=== PATIENT | female | born 1980 | race Caucasian/White ===

== ENCOUNTER 2019-07-06 06:36 | Day surgery (SDC) | payer OTHER, SELFPAY ==
--- NOTE | 2019-06-20 03:39 | HP_ITS ---
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 Farhat Sosa MD) Cholelithiasis (Acute) Abdominal pain (Acute) Surgical History (Updated 06/20/19 @ 14:24 by Tiffany Castro) No history of previous surgery (Acute) Family History (Updated 06/20/19 @ 14:25 by Tiffany Castro) Son Diabetes Seizures Father Heart disease Hypertension Grandmother CVA (cerebral vascular accident) Mother Thyroid disorder Social History (Updated 06/20/19 @ 15:[address] Farhat Sosa MD) Smoking Status: Current every day smoker alcohol intake: never substance use type: does not use HPI HPI HPI: TIM BROWN is a 38 F who presents to the office today for HPI HPI Surgical H&P: Yes HPI: TIM BROWN, is a 38 F who presents to the office today for right mid abdominal pain. The patient's primary care physician is Dr. Mitzi Canada. Written copy of my surgical recommendations will be returned to her. 1 year ago she developed some intermittent right mid abdominal pain to the right of the umbilicus. She complains of the discomfort particularly after eating something close to the end of her eating. Is associated with nausea. She has gas and rumbling. She denies fever. She frequently has sweats. A month ago she developed mononucleosis. She was severely dehydrated. She was in the hospital overnight. CT scan was obtained at [facility] gallbladder was present and in the fundus was a soft tissue density measuring 0.1 x 1 x 1.3 cm. [place] possibly to be adenomyosis. Small bowel enteritis was identified. Subsequently on June 02, 2019 she had a right upper quadrant ultrasound. This demonstrated a mildly hyperechoic focus measuring 9 x 7 mm felt to be likely a stone of the gallbladder. She is referred for surgical consultation. She has not had any previous surgery on her abdomen. ROS General General: No weight change, appetite, fatigue, colon cancer, breast cancer or weakness HEENT HEENT: Yes swollen glands; no difficulty swallowing, eye injury, eye surgery or hoarseness Endo Endocrine: No thyroid disease, diabetes mellitus, thyroid cancer, Hair loss, heat intolerance or cold intolerance Skin Skin: No rash or changing moles Breast Breast: No left breast lump, right breast lump, nipple discharge, breast pain, abnormal mammogram, abnormal US or breast enlargement Musc Musculoskeletal: Yes back problems Cardio Cardiovascular: Yes high blood pressure; no murmur, pacemaker, heart disease, atrial fibrillation, heart attack, heart stent, palpitations, shortness of breat with exertion or chest pain Psych Psychiatric: Yes anxiety; no depression or hearing voices Resp Respiratory: No shortness of breath, No sleep apnea, No cough, No COPD, No asthma, No emphysema, No wheezing Gastro Gastrointestinal: Yes abdominal pain, Yes nausea or vomiting, No diarrhea, No constipation, No blood in stool, No acid reflux, No hemorrhoids, No ulcers, Yes gallbladder problem, No black,tarry stools Bg Hematologic: No blood thinners, No blood disorders, No bleeding, No anemia, No blood clots Neuro Neurologic: No system reviewed and no additional complaints, except as docu, No as per HPI, No abnormal walking, No abnormal hearing, No abnormal movements, No abnormal speech, No behavioral changes, No burning sensations, No confusion, No seizure-like activity, No unsteadiness, No dizziness, No localized weakness, No frequent falls, No headache(s), No lack of coordination, No loss of vision, No memory loss, No numbness, No other visual disturbances, No radiating pain, No restless legs, No sensory deficit, No fainting, No tingling, No tremor(s), No weakness, No other Exam Const General: cooperative, healthy appearing, comfortable Nutritional Appearance: underweight Orientation: alert, awake HENMT Head: normal to inspection Chest Chest palpation & inspection: normal inspection of the chest Breast Palpation: No nipple discharge Resp Effort & Inspection: normal respiratory effort Auscultation: clear to auscultation bilaterally Cardio Rate: regular rate Rhythm: regular rhythm Heart Sounds: no murmurs GI Other: Soft, normal bowel sounds, slight tenderness palpation right lower quadrant but no mass rebound or guarding Neuro General: alert, awake, oriented x3 Extrem General: no calf tenderness bilaterally Psych Affect: normal affect Assessment & Plan Problems 1. Right upper quadrant abdominal pain R10.11 2. Calculus of gallbladder with chronic cholecystitis without obstruction K80.10 Plan Chronic cholecystitis cholelithiasis. Abdominal pain. I suspect at least a portion of her discomfort is secondary to the stone. She has had an opportunity to ask any questions answered. I proposed for her a laparoscopic cholecystectomy with selective cholangiography. In detail we have discussed the technique, benefit, risk, alternatives. She has had an opportunity to ask and have questions answered. We will schedule and proceed at her discretion. I appreciate the opportunity of assisting with her surgical care Cc: Dr. Mitzi Sosa M.D., F.A.C.S. Coding Level of Care Code 90005 Diagnoses Right upper quadrant abdominal pain R10.11 ??Abdominal location: right upper quadrant Calculus of gallbladder with chronic cholecystitis without obstruction K80.10 ??Cholelithiasis location: gallbladder ??Cholecystitis presence: with cholecystitis ??Cholecystitis acuity: chronic ??Biliary obstruction: without biliary obstruction 06/20/19 1539 <Electronically signed by Farhat palacios MD> Date _ Farhat Sosa MD I have re-examined the patient. There are no clinical changes since date of exam.
[2019-06-20 14:20] VITALS: BMI 19.7
[2019-07-06] VITALS (8 sets, daily range): BP systolic 118–143; BP diastolic 77–97; PULSE 62–90; RESP 15–20; TEMP 36.8–37.2; O2SAT 93–100; BMI 21.2
--- NOTE | 2019-07-06 06:37 | EKG12_ITS ---
Test Reason : PRE OP Blood Pressure : / mmHG Vent. Rate : 059 BPM Atrial Rate : 059 BPM P-R Int : 134 ms QRS Dur : 076 ms QT Int : 386 ms P-R-T Axes : 068 066 050 degrees QTc Int : 382 ms Sinus bradycardia Otherwise normal ECG No previous ECGs available Confirmed by JOVANY CRUMP ([id number]), continuity editor STACIE BROWN ([id number]) on 07/07/2019 9:24:55 AM Referred By: Farhat Sosa Confirmed By:JOVANY CRUMP
[2019-07-06 07:00] LABS: Internal QC Validated? YES +Cl - CLEAR BKGD; Pregnancy, Urine Negative Negative
[2019-07-06 07:06] LABS: Hematocrit 42.1 % (37-47); Hemoglobin 13.4 g/dL (12.0-15.0); Mean Corp Hgb Conc 31.8 g/dL (32-36); Mean Corpuscular Volume 94.4 fL (81-99); Mean Platelet Vol. 9.8 fl (6.2-12.0); Platelet Count 303 K/mm3 (150-450); RBC Distribution Width CV 12.4 % (11.6-14.6); RBC Distribution Width SD 43.2 fl (35.1-43.9); Red Blood Count 4.46 M/mm3 (4.2-5.4)
[2019-07-06] MEDS: Lactated Ringers 1,000 ML 100 ML IV ×2 (07:16→10:31)
[2019-07-06 07:21] LABS: ALB/GLOB Ratio 1.1 RATIO (0.9-2.4); AST(SGOT) 12 U/L (15-37); Alanine Aminotransfer ALT/SGPT 21 U/L (13-56); Albumin, Serum 3.8 g/dL (3.2-5.0); Alkaline Phosphatase 62 U/L (45-117); Anion Gap 5 (5-15); BUN 9 mg/dL (7-18); BUN/Creat Ratio 11.6 RATIO (10-20); Calcium,Total 8.8 mg/dL (8.5-10.1); Chloride 106 mmol/L (98-107); Creatinine, Serum 0.78 mg/dL (0.55-1.02); EST Glomerular Filtration Rate 88 mL/min (>60); Est Glom Filt Rate - Afr Amer 106 mL/min (>60); Estimated Creatinine Clearance 84.45 ml/min; Globulin 3.4 g/dL (2.2-4.2); Glucose 85 mg/dL (74-106); Potassium 3.4 mmol/L (3.5-5.1); Protein, Total 7.2 g/dL (6.4-8.2); Sodium Level 140 mmol/L (136-145)
--- NOTE | 2019-07-06 07:34 | PCM.DC.GS ---
Discharge Diet: Light diet - advance as tolerated - if you have questions about your diet instructions, please talk to you doctor. Discharge Activity: May Not Drive - for 1 week or while taking narcotic pain medicine. May shower in (days): 1 Lifting Restrictions: 10 pounds Call your doctor if your incision/area has: Continuous Slow Oozing, Sudden Increased Bleeding, Increased Pain/ Swelling, Increased Redness, Foul Smelling Discharge Call your doctor if you observe: Fever of 101 or Higher Suture Line Care: Avoid Pulling/Pushing, Avoid Pinching/Bending Additional Dressing/Incision Instructions:: Change or remove dressing in 4 days. Leave steri-strips in place for 1 week. Allergies/Adverse Reactions: Allergies sulfamethoxazole [From Bactrim] Allergy (Severe, Verified 07/06/19 06:53) Swelling trimethoprim [From Bactrim] Allergy (Severe, Verified 07/06/19 06:53) Swelling Medications to take at Discharge lisinopril 20 mg tablet 20 mg PO DAILY 06/20/19 sertraline 100 mg tablet 100 mg PO DAILY 06/20/19 Primary Care Physician: Mitzi Canada, COMMERCIAL UNDERWRITER-C [Primary Care Provider] - Test Results: Test results from this visit will be discussed in further detail at your follow-up appointment, if applicable. Please Follow Up With: Farhat Sosa MD - [phone] When: Call the office with a progress report in 10 days please
[2019-07-06] MEDS: Cefazolin 2 GM in 0.9% Normal Saline 100 ML IV (08:26)
--- NOTE | 2019-07-06 08:30 | GALL_PTH ---
PATIENT: TIM RED LOC: [facility] U#:[id number] AGE/SX: 38/F ROOM: RE07/06/[address]: Dr. Farhat oSsa MD : [id number] BED: DIS: 07/06/2019 SPEC #: [id number] RECD: 07/06/19 10:05 STATUS: LISA MARIELLE #: [id number] RICCO: 07/06/19 08:[address]: Farhat Sosa DEPT: SURGICAL PATHOLOGY RECD BY: Tenzin Lacey ENTERED: 07/06/19 10:22 SP TYPE: DEMOND CACERES DR: Mitzi Canada, [employer] FITNESS INSTRUCTOR-C Tissues: Gallbladder, NOS Procedures: Surgery Specimen Level III HEADER OPERATION: Laparoscopic cholecystectomy with IOC PRE-OP DIAGNOSIS: Right upper quadrant abdominal pain; calculus of gallbladder with chronic cholecystitis TISSUE SUBMITTED: Gallbladder MICROSCOPIC DIAGNOSIS Gallbladder, cholecystectomy: Chronic cholecystitis and cholesterolosis. Focal changes consistent with Rokitansky-Aschoff sinuses. See comment. CELESTE:hailey 07/07/19 COMMENT The nodule at the fundus show changes consistent with Rokitansky-Aschoff sinuses. MICROSCOPIC DESCRIPTION Slides are reviewed. GROSS DESCRIPTION Received is one container labeled with the patient's name and designated gallbladder. The specimen consists of a gallbladder measuring 7 cm in length and up to 2.5 cm in diameter. The external surface is pink-del toro, smooth and glistening for the most part. Focally it is granular, hemorrhagic and contains cautery artifact. The gallbladder contains green-yellow mucoid bile. No stones are identified in the container or in the gallbladder. Sections of the gallbladder wall reveal a del toro nodule at the fundus measuring 0.7 cm in greatest dimension. The gallbladder wall measures up to 0.2 cm in thickness. The mucosa also shows several yellowish streaks consistent with cholesterolosis. Rehab Tech sections from the gallbladder and the cystic duct are submitted in two cassettes as follows: 1 - mucosa, 2 - nodule at the fundus submitted in entirety. / CELESTE:hailey 07/06/19 TC:3 CPT: 81684
--- NOTE | 2019-07-06 08:30 | RAD_ITS ---
STUDY: INTRAOPERATIVE CHOLANGIOGRAM. REASON FOR EXAM: Female, 38 years old. pain. 11.7 sec., 76 images FLUOROSCOPY TIME (if supplied): ( 11.7 seconds ) minutes/seconds TECHNIQUE: An intraoperative cholangiogram was performed by the surgeon. Imaging was submitted. COMPARISON: None. FINDINGS: The visualized intrahepatic biliary ducts are unremarkable. The common bile duct is not dilated. No intraluminal filling defects are seen. There is free flow of contrast into the duodenum. RAD/Cholangiogram/ O R,Initial IMPRESSION: Unremarkable intraoperative cholangiogram. Electronically Signed: Misael Cantu, at 9:52 EDT , Service support ,
[2019-07-06] MEDS: Bupivacaine Mpf 0.5% 30 ML VIAL (09:15)
--- NOTE | 2019-07-06 09:27 | PCM.OPRPT ---
Problem List (1) Cholelithiasis Status: Acute Qualifiers: Cholelithiasis location: gallbladder Cholecystitis acuity: chronic Biliary obstruction: without biliary obstruction (2) Abdominal pain Status: Acute Qualifiers: Abdominal location: epigastric Qualified Code(s): R10.13 - Epigastric pain Report of Operation Date of Procedure: 07/06/19 Pre-Operative Diagnosis: Chronic cholecystitis cholelithiasis right upper quadrant abdominal pain Post-Operative Diagnosis: Same Surgery/Procedure Performed:: Laparoscopic cholecystectomy with cholangiograms Description of Surgical Findings:: Timeout and informed consent was obtained. 38-year-old female was taken to the operating placed by the table underwent general endotracheal intubation anesthesia. The abdomen sterilely prepped draped. 0.5% Marcaine was used as a local anesthetic. Throughout the procedure total of 30 cc was used. Skin sites were pre-anesthetized. Ancef 2 g were given intravenously preoperatively. A vertical infraumbilical midline incision was created sharp dissection carried down through the subtenons tissue direct access to the peritoneum obtained varies needle inserted the abdomen was insufflated with CO2 to a pressure of 10 Pressure to me trocar inserted 10 without scope inserted no concerning trocar injuries under physician 5 m ports were placed in the epigastric right upper quadrant and right lateral upper quadrant. Superficial inspection of the abdomen did not reveal any abnormality. The infundibular area was completely dissected free until clearly the cystic artery and cystic duct were identified with a critical view. The cystic artery was secured proximally and distally with hemo-lock clips prior to transecting it. Hemoclip was placed on the cystic duct incision made in the cystic duct and through a 14-gauge Angiocath cholangiogram catheter was inserted. Fluoroscopically controlled cholangiograms were obtained demonstrating normal ductal anatomy. Plan Estrada catheter was removed Humalog clip was placed on the cystic duct stump prior to transecting it. Further gallbladder peritoneum was secured with hemo-lock clips were pertinent. The gallbladder is dissected free from the liver bed. Very minimal bile spillage occurred at the dome of the gallbladder but that was rapidly controlled with only a couple drops. No stones. The gallbladder was immediately placed in a retrieval bag. It is asked at the umbilicus. The right upper colon was irrigated and aspirated free of excess fluid. An additional Hemoclip was placed at the gallbladder fundic area to assure hemostasis. The abdomen was aspirated irrigated free of excess fluid. Gallbladder is exited the umbilicus and remaining trochars were removed under visualization the abdomen was allowed to deflate of the CO2. The fascia at the umbilicus approximately 0 Vicryl [id number] suture. Skin edges approximated up to 4-0 Monocryl subdermal stitches. Steri-Strips Telfa and OpSite dressings applied. Sponge and instrument and needle counts were reported to the surgeon be correct. Blood loss minimal. Specimens gallbladder. Drains none. Blood loss minimal. Farhat Sosa M.D., F.A.C.S. Type of Anesthesia:: General Anesthesiologist: Lelo Cortez
[2019-07-06] MEDS: HYDROcodone Bitartrate/Apap 5/325 Tablet PO (12:05)
== END 2019-07-06 12:25 | disposition home or self-care (01) ==
LOC: SDC 06:37 → AC 06:39
PROVIDERS: PCP Nurse Practitioner Family; Referring Provider Surgery; Visit Provider Surgery
PROC: (CPT 47610; principal; 2019-07-06 08:10)
DX: K80.10 Calculus of gallbladder with chronic cholecystitis without obstruction (principal); I10 Essential (primary) hypertension; F41.9 Anxiety disorder, unspecified; F17.200 Nicotine dependence, unspecified, uncomplicated
CPT/HCPCS: 47563; 36415; 74300; 76000; 80053; 81025; 85027; 88304; 93005; J7120; J2405

== ENCOUNTER 2023-10-04 12:23 | Emergency (ER) | payer BC, SELFPAY ==
[2023-10-04 12:25] VITALS: BP 137/92; PULSE 74; RESP 14; TEMP 36.3; O2SAT 98; BMI 23.3
--- NOTE | 2023-10-04 12:37 | CT_ITS ---
INDICATION: right flank pain EXAMINATION: CT ABDOMEN AND PELVIS WITHOUT CONTRAST - CT Abdomen And Pelvis W/O Contrast Injection TECHNIQUE: Helically acquired images were obtained of the abdomen and pelvis without oral or IV contrast. The protocol utilizes one or more of the following dose reduction techniques: automated exposure control, adjustment of mA and/or kV according to patient size,and/or use of iterative reconstruction technique. IV Contrast dosage and agent: None. Oral contrast: None. RADIATION DOSAGE (If Supplied By Facility): CTDIvol = ( 6.56 ) mGy, DLP = ( 330.87 ) mGycm COMPARISON: No relevant prior comparison study available FINDINGS: LOWER CHEST: Lung bases are clear. No cardiomegaly or pericardial effusion. The lack of intravenous contrast limits evaluation of solid visceral organs. LIVER: Homogeneous. No focal mass. GALLBLADDER AND BILIARY TREE: There is nonvisualization of the gallbladder. No intra- or extrahepatic biliary ductal dilation. PANCREAS: No focal cystic or solid mass. SPLEEN: Normal size without focal cystic or solid mass. ADRENAL GLANDS: No nodules. KIDNEYS AND URETERS: Normal renal size and position. No hydronephrosis. PERITONEUM: No ascites or free air. No other fluid collection. BOWEL: No evidence of acute appendicitis. No stomach or bowel distension. No focal inflammatory change. LYMPH NODES: No enlarged mesenteric or retroperitoneal lymph nodes. VESSELS: Aorta is non-dilated. URINARY BLADDER: Unremarkable. REPRODUCTIVE ORGANS: No pelvic masses. ABDOMINAL WALL: No discrete abdominal or pelvic wall hernia. BONES: No lytic or blastic abnormality. CT/Abdomen/Pelvis without Cont IMPRESSION: No acute intra-abdominal process. Electronically Signed: Gisell Monterroso MD at 14:07 EDT ,
--- NOTE | 2023-10-04 12:38 | EDS_ITS ---
HPI History of Present Illness Chief Complaint: Flank Pain Detail of Chief Complaint: Flank pain and hematuria Informant: patient Narrative Narrative: Patient presents to the emergency department with complaint of flank pain and hematuria. She gives history that 2-1/2 weeks ago she hurt her ankle and had to do a drug test because it was [employer]men's [employer]. and they noticed blood in her urine. She states that she did not fall or injure herself. Her PCP then apparently thought she had kidney stones. She was not having a lot of pain at that time. Now complains of dysuria and urgency and frequency. She complains of nausea. She has had pelvic pressure and discomfort into her vagina for about 3 to 4 days. Currently rates her pain a 7 out of 10. Patient does have history of UTIs. [facility] Medical History (Updated 10/04/23 @ 14:[address] Nanda Guerra DO) Cholelithiasis Abdominal pain Home Medications ?Medication ?Instructions ?Recorded ?Last Taken ?Type lisinopril 20 mg tablet 20 mg PO DAILY 06/20/19 07/06/19 05:00 History sertraline 100 mg tablet 100 mg PO DAILY 06/20/19 07/06/19 05:00 History Allergy/AdvReac Type Severity Reaction Status Date / Time sulfamethoxazole (From Allergy Severe Swelling Verified 10/04/23 12:27 Bactrim) trimethoprim (From Bactrim) Allergy Severe Swelling Verified 10/04/23 12:27 Family History (Updated 06/20/19 @ 14:25 by Tiffany Castro) Son Diabetes Seizures Father Heart disease Hypertension Grandmother CVA (cerebral vascular accident) Mother Thyroid disorder Surgical History (Updated 07/06/19 @ 09:[address] Farhat Sosa MD) No history of previous surgery Social History (Updated 07/18/19 @ 15:20 by Laura FORDE PAMellisaC) Smoking Status: Current every day smoker tobacco type: cigarettes alcohol intake: never substance use type: does not use ROS ROS ED Review of Systems ROS Unobtainable: other Constitutional Constitutional ED: Reports lethargy; Denies chills, fever(s), sweats or weight loss Eyes Eyes: Denies blurry vision, change in vision or diplopia ENT ENT ED: Denies rhinorrhea or sore throat Cardiovascular Cardiovascular: Denies chest pain, orthopnea or racing heartbeat Respiratory/Chest Respiratory/Chest: Denies cough, dyspnea, dyspnea on exertion, orthopnea or sputum Gastrointestinal Gastrointestinal: Reports abdominal pain and nausea; Denies diarrhea or vomiting Genitourinary Genitourinary ED: Reports dysuria, hematuria and urinary frequency Musculoskeletal Musculoskeletal: Denies arthralgias, back pain, myalgias or neck pain Integumentary Denies abscess, Abrasions or rash Neurologic Neurologic: Denies headache(s) or weakness Psychiatric Psychiatric: Denies anxiety, depression or suicidal thoughts Endocrine Endocrinology: Denies polydipsia, polyphagia or polyuria Hematologic/Lymphatic Hematologic/Lymphatic: Denies easy bleeding, easy bruising or lymphadenopathy Allergic/Immunologic Allergic/Immunologic ED: Denies mouth swelling, tongue swelling or urticaria EXAM Physical Exam Const Vital Signs: 10/04/23 12:25 10/04/23 14:24 Temperature 97.3 F L Temperature Source Temporal Pulse Rate 74 76 Respiratory Rate 14 18 Blood Pressure 137/92 H 129/74 H Blood Pressure Mean 107 92 Pulse Ox 98 100 Oxygen Delivery Method Room Air Room Air Positive well nourished and well developed General Appearance ED: well developed and NAD HEENT Reports TM's clear and moist mucous membranes normocephalic and atraumatic; Negative for trauma or tenderness Tympanic Membrane ED: Yes TM's clear Eyes PERRL and EOMs intact bilaterally General Eye ED: Negative for pale conjunctiva or scleral icterus Neck no lymphadenopathy, supple and no JVD General: Negative for tenderness Chest Wall inspection of chest normal and palpation of chest normal Chest: Negative for tenderness Resp normal respiratory effort and clear to auscultation bilaterally Effort and Inspection: Negative for respiratory distress or pain with movement Auscultation: Negative for rhonchi, wheezes or diminished lung sounds Cardio regular rate, regular rhythm, S1 normal heart sound, S2 normal heart sound and no murmurs Peripheral Pulses: pulses 2+ throughout GI normal to inspection, nondistended, normoactive bowel sounds, soft to palpation, non-distended and no masses GI Narrative: Mild tenderness palpation over left lower quadrant with some guarding. There is no rebound, rigidity, or perineal signs. No masses palpated. Back/Spine no thoracic nor lumbar tenderness Back/Spine Narrative: Mild CVA tenderness on the right. Extremity normal to inspection General Extremety ED: Negative for edema General Extremity: Negative for edema Neuro oriented x3, CN's II-XII intact bilaterally, no sensory deficits noted and gait normal Sensorium / Orientation: awake, alert, oriented to person, oriented to place and oriented to time Motor Exam: strength 5/5 throughout and strength abnormal Psych mental status grossly normal Skin no rashes or lesions noted and no wounds MDM MDM MDM Narrative Medical decision making narrative: Patient presents with right flank pain and lower abdomen pain with urinary symptoms. In the differential would be kidney stone versus UTI versus other acute process such as diverticulitis. IV line will be established. She will be given Toradol. She is driving and does not want narcotic pain medicine at this time. Will obtain a CT scan of the abdomen pelvis to evaluate further as well as urinalysis and basic labs. CBC with differential showed a white blood cell count of 9.8 with hemoglobin 14 and platelet count of 307. Chemistries unremarkable. hCG was negative. Urinalysis was negative. No evidence of microscopic blood. Patient had a CT scan of the abdomen pelvis that showed no evidence for appendicitis or kidney stone or acute process. This point etiology of patient's symptomatology unclear. Recommended she follow-up with [facility] on will give her referral. Will also refer to urology for follow-up. She denies any abnormal vaginal discharge or concern for pelvic infection. Lab Data Labs: Laboratory Results - last 24 hr 10/04/23 10/04/23 12:35 12:50 WBC 9.8 RBC 4.62 Hgb 14.0 Hct 43.9 MCV 95.0 MCH 30.3 MCHC 31.9 L RDW Std Deviation 45.0 H RDW Coeff of Nicole 12.9 Plt Count 307 MPV 9.7 Immature Gran % (Auto) 0.500 Neut % (Auto) 60.2 Lymph % (Auto) 29.0 [place] % (Auto) 7.2 Eos % (Auto) 2.4 Baso % (Auto) 0.7 Absolute Neuts (auto) 5.9 Absolute Lymphs (auto) 2.85 Nucleated RBC % 0 Sodium 136 Potassium 4.0 Chloride 109 H Carbon Dioxide 21.0 Anion Gap 6 BUN 14 Creatinine 0.84 Estim Creat Clear Calc 74.57 Est GFR (MDRD) Af Amer 95 Est GFR (MDRD) Non-Af 79 BUN/Creatinine Ratio 16.6 Glucose 109 H Calcium 8.7 Serum , Qual NEGATIVE Urine Color Yellow Urine Clarity Clear Urine pH 7.0 Ur Specific [place] 1.010 Urine Protein Negative Urine Glucose (UA) Normal Urine Ketones Negative Urine Occult Blood Negative Urine Nitrite Negative Urine Bilirubin Negative Urine Urobilinogen Normal Ur Leukocyte Esterase Negative Urine RBC 0 SEEN Urine WBC 0 SEEN Ur Squamous Epith Cells 0-5 SEEN Urine Bacteria 0 SEEN Urine Mucus 0 SEEN Radiography Diagnostic Testing: Clinical Impression(s) from Imaging Studies Abdomen/Pelvis CT 10/04/23 12:37 IMPRESSION: No acute intra-abdominal process. Electronically Signed: Gisell Monterroso MD at 14:07 EDT , Discharge Plan Triage Chief Complaint: Flank Pain ED Provider: Nanda Guerra Dx/Rx/DC Orders Clinical Impression: Abdominal pain Instructions: ED Abdominal Pain Unkn Cause Fem, ED Flank Pain, Uncertain Cause Prescriptions: No Action lisinopril 20 mg tablet 20 mg PO DAILY sertraline 100 mg tablet 100 mg PO DAILY Primary Care Provider: Mitzi Canada NP Referrals: Jenn Sommers MD [Med Staff - Active Staff] - 3-5 Days Sharon Richey MD [Med Staff - Active Staff] - 3-5 Days Mitzi Canada NP, [employer] STERE[employer] INSTALLER-C [Primary Care Provider] - Print Language: Swedish Disposition Disposition: Home, Self Care Discharge Date/Time: 10/04/23 15:07
[2023-10-04] MEDS: Ketorolac 30 MG/ML Syringe IV (12:47)
[2023-10-04 12:56] LABS: Bacteria 0 SEEN /hpf (None Seen); Mucous, Urine 0 SEEN /hpf (<or=2+); Red Blood Cells-Urine 0 SEEN /hpf (0-5); White Blood Cells 0 SEEN /hpf (0-5)
[2023-10-04 12:58] LABS: Absolute Lymphocyte Count 2.85 X10^3/uL (0.83-4.51); Absolute Neutrophil Count 5.9 X10^3/uL (2.0-7.7); Basophil# 0.07 X10^3/uL; Basophil% 0.7 % (0-1); Eosinophil# 0.24 X10^3/uL; Eosinophils% 2.4 % (0-5); Hematocrit 43.9 % (37-47); Lymphocyte # 2.85 X10^3/ul (0.83-4.51); Mean Corp Hgb Conc 31.9 g/dL (32-36); Mean Corpuscular Hgb 30.3 pg (27.0-32.0); Mean Platelet Vol. 9.7 fl (6.2-12.0); Monocyte# 0.71 X10^3/uL; Monocyte% 7.2 % (0-10); NRBC Flagged by Analyzer 0 % (0-5); Neutrophil % 60.2 % (47-70); Platelet Count 307 K/mm3 (150-450); RBC Distribution Width CV 12.9 % (11.6-14.6); Red Blood Count 4.62 M/mm3 (4.2-5.4); White Blood Count 9.8 K/mm3 (4.4-11.0)
[2023-10-04 13:07] LABS: Color, Urine Yellow (Yellow); Glucose, Dipstick Normal (Normal); Ketone-Dipstick Negative (Negative); Leukocyte Esterase-Dipstick Negative /ul (Negative); Nitrite-Dipstick Negative (Negative); Occult Blood-Urine Negative /ul (Negative); Protein-Dipstick Negative (Negative); Urine Bilirubin Dipstick Negative (Negative); Urine Clarity Clear (Clear); Urine Urobilinogen Normal (Normal)
[2023-10-04 13:12] LABS: Anion Gap 6 (5-15); BUN 14 mg/dL (7-18); BUN/Creat Ratio 16.6 RATIO (10-20); Calcium,Total 8.7 mg/dL (8.5-10.1); Chloride 109 mmol/L (98-107); Creatinine, Serum 0.84 mg/dL (0.55-1.02); EST Glomerular Filtration Rate 79 mL/min (>60); Est Glom Filt Rate - Afr Amer 95 mL/min (>60); Estimated Creatinine Clearance 74.57 ml/min; Glucose 109 mg/dL (74-106); Sodium Level 136 mmol/L (136-145)
[2023-10-04] MEDS: 0.9% Normal Saline (1000mL) 1,000 ML 150 ML IV (13:15)
[2023-10-04 13:17] LABS: Internal QC Validated? YES +Cl - CLEAR BKGD; Pregnancy, Serum, hCG Quali. NEGATIVE Negative
[2023-10-04 13:21] LABS: Squamous Epithelial Cells - UA 0-5 SEEN /hpf (5-10)
[2023-10-04 14:24] VITALS: BP 129/74; PULSE 76; RESP 18; O2SAT 100
== END 2023-10-04 15:07 | disposition home or self-care (01) ==
PROVIDERS: Emergency Provider Emergency Medicine; PCP Nurse Practitioner Family; Visit Provider Emergency Medicine
DX: R10.9 Unspecified abdominal pain (principal); F17.210 Nicotine dependence, cigarettes, uncomplicated
CPT/HCPCS: 74176; 80048; 81001; 84703; 85025; 96361; 96374; 99283; J7030; A4216